=== PATIENT | female | born 1935 | race Two or more races ===

== ENCOUNTER 2020-02-02 00:57 | Emergency (ER) | payer OTHER, MEDICAID ==
[~2020-02-02] VITALS: Ht 160 cm; Wt 70.3 kg
[2020-02-02 01:10] VITALS: BP 156/122
--- NOTE | 2020-02-02 01:10 | NUR ---
ED Nurse Note: Pt walked into ED with family from home for c/o generalized body pain, especially in lower abdomen and head. Pt family states they believe cause to be hemorrhoids. Pt denies any active bleeding. No N/V. Pt is aaox4, breathing is normal, no SOB or cough noted. Pt has elevated BP upon ER triage. Pt placed in room and connected to youth nutritional monitor. Safety measures in place, will continue to monitor.
[2020-02-02] MEDS ORDERED: fentaNYL 100 mcg/2 mL IV ONE (01:15)
--- NOTE | 2020-02-02 01:25 | NUR ---
ED Nurse Note: ERMD bedside for rectal exam. Hemorrhoids noted.
--- NOTE | 2020-02-02 01:30 | Emergency Room Report ---
History of Present Illness General Chief Complaint: Abdominal Pain Source: Patient Present Illness HPI Patient is an 84-year-old female past medical history of hypertension and hemorrhoids who presents to the ER complaining of abdominal pain. Patient states that her pain has been worsening recently. She also complains of urinary frequency. Patient states that the pain radiates towards her entire body. She denies any fever or chills. She denies any nausea or vomiting. She denies any chest pain or shortness of breath. Patient was brought in by her family. Allergies: Coded Allergies: No Known Allergies (Unverified , 02/02/20) COVID-19 Screening Contact w/high risk pt: No Recent Travel to affected area: No Experienced COVID-19 symptoms?: No COVID-19 Testing performed THERAPY TECHNICIAN: No Patient History Reviewed Nursing Documentation: PMH: Agreed; PSxH: Agreed Nursing Documentation-PMH Hx Cardiac Problems: Yes Hx Hypertension: Yes Review of Systems All Other Systems: negative except mentioned in HPI Physical Exam Vital Signs Date Time Temp Pulse Resp B/P (MAP) Pulse Ox O2 Delivery O2 Flow Rate FiO2 02/02/20 01:05 99.7 93 16 189/100 (129) 96 Room Air Sp02 EP Interpretation: reviewed, normal General Appearance: no apparent distress, alert, GCS 15, non-toxic Head: normocephalic, atraumatic Eyes: bilateral eye normal inspection, bilateral eye PERRL ENT: hearing grossly normal, normal pharynx, no angioedema, normal voice Neck: full range of motion, supple/symm/no masses Respiratory: chest non-tender, lungs clear, normal breath sounds, speaking full sentences Cardiovascular #1: regular rate, rhythm, no edema Gastrointestinal: no guarding, no rebound, other - lower abdominal pain, overweight Rectal: normal rectal tone, other - non-tender, non-thrombosed, non- erythematous external hemorrhoids sales service promoter RN Carline Musculoskeletal: normal range of motion Neurologic: sole cutter III-XII nml as tested Psychiatric: no suicidal/homicidal ideation Skin: no rash Lymphatic: no adenopathy Medical Decision Making Diagnostic Impression: Primary Impression: Abdominal pain Additional Impressions: Hypertension Hemorrhoids ER Course Patient presents with lower abdominal pain radiating through her entire body. Family concerned for her hemorrhoids. They believe that it is the cause of her pain. Requesting medications for it I have prescribed for Anusol. Patient is afebrile and has no elevated white blood cell count. Patient was hypertensive in the emergency room. Patient is supposed to be on metoprolol and hydralazine. Unclear if patient is compliant with her medication. Patient given 10 mg of IV hydralazine as well as 5 mg of IV metoprolol and 25 mg of oral metoprolol. Patient's blood pressures improved to 150s systolic and heart rate in the 80s. Patient was given 1 L of IV fluids as well as pain medication. On reevaluation she states that her abdominal pain has improved. CT abdomen pelvis demonstrates no acute intra-abdominal pathology. After discussing risks and benefits of further diagnostics, treatment plans, as well as indications for and risks of admission, the patient is agreeable to being discharged home. I have explained that their evaluation and treatment in the emergency department today is an important step towards them achieving better health but that their evaluation today is not intended to replace further evaluation and treatment by a physician in their local clinic. I have explained that while the current findings suggest no immediate life threatening emergency they will require further evaluation and treatment by a physician of their choice in their area. They understand that it will be necessary for them to review the final reports of their ED visit with their clinic physician. We have reviewed indications for return to the Emergency Department. I have explained that additional time may need to pass and/or additional testing as an outpatient may be necessary before a definitive diagnosis can be made. They tell me they are willing to follow up as instructed within the timeframe I recommend. They appear to understand what we discussed. Additionally they understand that if they are unable to be seen by an outpatient physician they are welcome, and in fact should, return to the Emergency Department for a repeat evaluation. The patient is stable at time of discharge. Laboratory Tests Test 02/02/20 01:30 White Blood Count 8.7 K/UL (4.8-10.8) Red Blood Count 4.97 M/UL (4.20-5.40) Hemoglobin 16.4 G/DL (12.0-16.0) H Hematocrit 50.6 % (37.0-47.0) H Mean Corpuscular Volume 102 FL (80-99) H Mean Corpuscular Hemoglobin 33.0 PG (27.0-31.0) H Mean Corpuscular Hemoglobin Concent 32.4 G/DL (32.0-36.0) Red Cell Distribution Width 12.0 % (11.6-14.8) Platelet Count 208 K/UL (150-450) Mean Platelet Volume 7.4 FL (6.5-10.1) Neutrophils (%) (Auto) 43.8 % (45.0-75.0) L Lymphocytes (%) (Auto) 39.5 % (20.0-45.0) Monocytes (%) (Auto) 9.9 % (1.0-10.0) Eosinophils (%) (Auto) 5.2 % (0.0-3.0) H Basophils (%) (Auto) 1.7 % (0.0-2.0) Prothrombin Time 11.2 SEC (9.30-11.50) Prothrombin Time INR 1.0 (0.9-1.1) Activated Partial Thromboplast Time 26 SEC (23-33) Urine Color Pale yellow Urine Appearance Clear Urine pH 7 (4.5-8.0) Urine Specific Frederica 1.005 (1.005-1.035) Urine Protein Negative (NEGATIVE) Urine Glucose (UA) Negative (NEGATIVE) Urine Ketones Negative (NEGATIVE) Urine Blood Negative (NEGATIVE) Urine Nitrite Negative (NEGATIVE) Urine Bilirubin Negative (NEGATIVE) Urine Urobilinogen Normal MG/DL (0.0-1.0) Urine Leukocyte Esterase Negative (NEGATIVE) Sodium Level 136 MMOL/L (136-145) Potassium Level 4.4 MMOL/L (3.5-5.1) Chloride Level 102 MMOL/L (98-107) Carbon Dioxide Level 21 MMOL/L (21-32) Anion Gap 13 mmol/L (5-15) Blood Urea Nitrogen 9 mg/dL (7-18) Creatinine 1.0 MG/DL (0.55-1.30) Estimated Glomerular Filtration Rate 52.8 mL/min (>60) Glucose Level 117 MG/DL (74-106) H Calcium Level 10.0 MG/DL (8.5-10.1) Magnesium Level 2.2 MG/DL (1.8-2.4) Total Bilirubin 0.6 MG/DL (0.2-1.0) Aspartate Amino Transferase (AST) 45 U/L (15-37) H Alanine Aminotransferase (ALT) 29 U/L (12-78) Alkaline Phosphatase 97 U/L (46-116) Total Protein 8.9 G/DL (6.4-8.2) H Albumin 4.3 G/DL (3.4-5.0) Globulin 4.6 g/dL Albumin/Globulin Ratio 0.9 (1.0-2.7) L Lipase 235 U/L (73-393) Last Vital Signs Date Time Temp Pulse Resp B/P (MAP) Pulse Ox O2 Delivery O2 Flow Rate FiO2 02/02/20 01:05 99.7 93 16 189/100 (129) 96 Room Air Disposition: HOME, SELF-CARE Condition: Stable Scripts Hydrocortisone Acetate* (ANUSOL-HC*) 25 Mg Supp.rect 1 SUPP RECTAL TWICE A DAY, #14 SUPP Prov: Doreen Rondon M.D. 02/02/20 Tramadol Hcl* (ULTRAM*) 50 Mg Tablet 50 MG ORAL Q6H PRN for For Pain, #20 TAB 0 Refills Prov: Doreen Rondon M.D. 02/02/20 Referrals: NON PHYSICIAN (PCP) Additional Instructions: The patient was provided with discharge instructions, notified to follow-up with a primary care doctor and or specialist in the next 24-48 hours, and to return to the ED if they have worsening of their symptoms. Please note that this report is being documented using [employer] technology. This can lead to erroneous entry secondary to incorrect interpretation by the dictating instrument. Doreen Rondon M.D. Feb 02, 2020 01:30
[2020-02-02 01:41] LABS: BASOPHILS % (AUTO) 1.7 % (0.0-2.0); EOSINOPHILS % (AUTO) 5.2 % (0.0-3.0); HEMATOCRIT 50.6 % (37.0-47.0); HEMOGLOBIN 16.4 G/DL (12.0-16.0); LYMPHOCYTES % (AUTO) 39.5 % (20.0-45.0); MEAN CORPUSCULAR VOLUME 102 FL (80-99); MONOCYTES % (AUTO) 9.9 % (1.0-10.0); NEUTROPHILS % (AUTO) 43.8 % (45.0-75.0); PLATELET COUNT 208 K/UL (150-450); RED BLOOD COUNT 4.97 M/UL (4.20-5.40); WHITE BLOOD COUNT 8.7 K/UL (4.8-10.8)
[2020-02-02 01:42] LABS: APPEARANCE,URINE CLEAR; BILIRUBIN, URINE NEGATIVE (NEGATIVE); COLOR,URINE PALE YELLOW; GLUCOSE, URINE (UA) NEGATIVE (NEGATIVE); KETONES,URINE NEGATIVE (NEGATIVE); LEUKOCYTE ESTERASE ,URINE NEGATIVE (NEGATIVE); NITRITE,URINE NEGATIVE (NEGATIVE); PH,URINE 7 (4.5-8.0); PROTEIN,URINE NEGATIVE (NEGATIVE); UROBILINOGEN,URINE NORMAL MG/DL (0.0-1.0)
[2020-02-02 01:53] LABS: ANION GAP 13 mmol/L (5-15); BLOOD UREA NITROGEN 9 mg/dL (7-18); CARBON DIOXIDE 21 MMOL/L (21-32); CHLORIDE 102 MMOL/L (98-107); POTASSIUM 4.4 MMOL/L (3.5-5.1); SODIUM 136 MMOL/L (136-145)
[2020-02-02 01:57] LABS: ALANINE AMINOTRANSFERASE 29 U/L (12-78); ALBUMIN 4.3 G/DL (3.4-5.0); ALBUMIN/GLOBULIN RATIO 0.9 (1.0-2.7); ALKALINE PHOSPHATASE 97 U/L (46-116); ASPARTATE AMINO TRANSFERASE 45 U/L (15-37); BILIRUBIN,TOTAL 0.6 MG/DL (0.2-1.0)
[2020-02-02] MEDS ORDERED: HYDRALAZINE HCL25 M1 ORAL (02:20)
[2020-02-02] MEDS ORDERED: ASPIR 8181 MG ORAL (02:20)
[2020-02-02] MEDS ORDERED: METOPROLOL TART25 MG ORAL (02:20)
--- NOTE | 2020-02-02 03:09 | Diagnostic Imaging Report ---
EXAM: CT Abdomen and Pelvis Without Intravenous Contrast CLINICAL HISTORY: ABD PAIN TECHNIQUE: Axial computed tomography images of the abdomen and pelvis without intravenous contrast. CTDI is 7 mGy and DLP is 375 mGy-cm. One or more of the following dose reduction techniques were used: automated exposure control, adjustment of the mA and/or kV according to patient size, use of iterative reconstruction technique. COMPARISON: No relevant prior studies available. FINDINGS: Lung bases: Unremarkable. No mass. No consolidation. ABDOMEN: Liver: Unremarkable. Gallbladder and bile ducts: Cholecystectomy. No ductal dilation. Pancreas: Unremarkable. No ductal dilation. Spleen: Unremarkable. No splenomegaly. Adrenals: Unremarkable. No mass. Kidneys and ureters: Unremarkable. No obstructing stones. No hydronephrosis. Stomach and bowel: Unremarkable. No obstruction. No mucosal thickening. PELVIS: Appendix: No findings to suggest acute appendicitis. Bladder: Unremarkable. No stones. Reproductive: Unremarkable as visualized. ABDOMEN and PELVIS: Intraperitoneal space: Unremarkable. No free air. No significant fluid collection. Bones/joints: No acute fracture. No dislocation. Soft tissues: Unremarkable. Vasculature: Unremarkable. No abdominal aortic aneurysm. Lymph nodes: Unremarkable. No enlarged lymph nodes. IMPRESSION: No acute findings in the abdomen or pelvis.
[2020-02-02] MEDS ORDERED: TRAMADOL HCL50 MG ORAL (03:12)
[2020-02-02] MEDS ORDERED: ANUSOL-HC25 MG RECTAL (03:12)
--- NOTE | 2020-02-02 03:15 | NUR ---
ED Nurse Note: Pt BP remains elevated at this time, ERMD aware. Will carry out medication orders.
[2020-02-02] MEDS ORDERED: Metoprolol Tartrate 5mg/5ml Inj IVP STA (03:23)
[2020-02-02 03:40] VITALS: BP 152/79
[2020-02-02 04:00] VITALS: BP 150/80
--- NOTE | 2020-02-02 04:00 | NUR ---
ER DISCHARGE NOTE: Patient is cleared to be discharged per ERMD, pt is aox4, on room air, with stable vital signs. pt was given dc and prescription instructions, pt was able to verbalize understanding, pt id band and iv site removed without complications. pt is able to ambulate with steady gait. pt took all belongings.
== END 2020-02-02 04:00 | disposition home or self-care (01) ==
LOC: EMR 01:28
DX: R10.9 Unspecified abdominal pain (principal); I10 Essential (primary) hypertension; K64.9 Unspecified hemorrhoids; Z90.49 Acquired absence of other specified parts of digestive tract
CPT/HCPCS: 36415; 74176; 80053; 81003; 83690; 83735; 85025; 85610; 85730; 96361; 96374; 96375; 99284; J0360; J3010; J7030